=== PATIENT | male | born 1990 | race Caucasian/White ===

== ENCOUNTER 2021-07-13 23:15 | Observation (INO) | payer BC, SELFPAY ==
[2021-07-13 23:34] VITALS: BP 130/87; PULSE 72; RESP 15; TEMP 37.1; O2SAT 97
[2021-07-13 23:37] VITALS: BMI 25.1
[2021-07-14] MEDS: hyDROXYzine 25 mg Capsule 50 MG PO ×2 (00:21→07:58)
[2021-07-14] MEDS: trazodone 50 mg Tablet PO (00:21)
[2021-07-14 06:00] VITALS: BP 114/67; PULSE 58; RESP 15; TEMP 36.5; O2SAT 100
--- NOTE | 2021-07-14 09:39 | W.PM.NPUH&PS ---
Providers/Chief Complaint Admitting Physician: Demond Gaona MD Chief Complaint: etoh, si HPI NPU History of Present Illness Wander Dennison is a 30 year old male who was admitted as a transfer from [facility] with the following emergency department report: 30-year-old white male presents today with suicidal ideation patient apparently has had a complicated history with surgery. He has longstanding history of depression. States that he has been feeling intermittently suicidal for 15 years. Tonight after drinking he became concerned that he might act on that so he asked his to call and arrange for suicide watch. This prompted the to call 911. His blood alcohol level was 248. He admits to smoking 2 joints a day. He used methamphetamine in the past but stated that he quit in 2013. Urine drug screen was positive only for marijuana. EMS Affidavit: Mr. Wander Dennison was a patient requesting ambulance transport for suicidal thoughts. Patient states I need to be on suicide watch and I want to . Patient admits to drinking alcohol tonight. Patient was anxious and states several times I need suicide help and I want to . Affidavit from police: On Monday, July 12, 2021 at approximately 2052 hrs., Officer responded to [facility] for an emotionally disturbed person. Upon arrival we contacted a male subject identified as Wander Dennison who was compliant, and I had him speak with a sergeant. I went to the residents and spoke with subjects , Xochilt, she stated that he have been drinking and stated that he wanted to kill himself. Xochilt told me that Wander had numerous prior incidents of suicidal thoughts. Xochilt stated that Wander struggles with alcoholism and whenever he drinks he makes suicidal statements. But she does not always take them seriously. Tonight, Wander became angry and began breaking things in the residence, due to his behavior and statements she contacted emergency services. Following my conversation with Xochilt, I returned outside and spoke with Wander. I asked Wander what was going on, he state I went to seek sanctuary and ?I want to kill myself . I asked Wander if he could explain why he wanted to cause harm himself harm and he replied I would like to explain that to a professional. Based on Wander's comments and request for help, I contacted emergency ambulance sericves. While gathering further information, Wander began having seizures (convulses, foaming from the mouth and urinating himself). And who was also observed this stated that he has seizures every time he drinks alcohol. When Wander seizures appear to stop he stated I deserve this and told the EMS personnel I am said . Wander was assisted off the ground and escorted to the ambulance where he was turned over to EMS personnel for treatment. ? He was admitted to the neuropsychiatry unit for definitive treatment of these issues. He says that yesterday he did not start out well. He asked his how many pills they had not paid. She gave him a list of all the bills that they had paid and did not tell him any of the bills that they had not paid. They continue to argue all day long. He started drinking and way too far. He got more and more angry. He started destroying things in the house. He started taking things from the children. He knew it would continue to get worse and he says that he called the ambulance so that they would bring him to the hospital. Told them that he was suicidal so that they would bring him here. They have had many struggles during the pandemic. She is a nurse and when she has symptoms of the virus she has to not work for 20 days. He generally makes more money than she does because he has like 7 jobs at a time. Currently he has more work than he can handle. He says that everything they have bought is in her name. He says all of their deaths are in her name except for the on his Sebastián which is $20,000. He is planning on her when he goes home today. Everyone in his family is alcoholic or does drugs secretly. He and one relative that has seizures but they have been randomly and not based on drinking or getting overheated. He also frequently makes suicidal statements when he is intoxicated. He says that if someone disagrees with him and does not wake to hurt him he holds that grudge for many days and eventually explode with it. He says that his does that all the time. He knows that he needs therapy and would really benefit from talking with somebody who would not be judgmental like his is. PAST PSYCHIATRIC HISTORY As above SOCIAL HISTORY As above Meds NPU Home Medications Medication Instructions Recorded Confirmed Last Taken Type No Known Home Medications 07/14/21 07/14/21 Unknown History Allergies Allergy/AdvReac Type Severity Reaction Status Date / Time No Known Allergies Allergy Verified 07/14/21 00:02 Mental Status Exam MSE Comments: This is a mildly overweight male who appears his stated age and is in no acute distress. He is pleasant and cooperative with the examination. He is dressed in hospital scrub pants but no shirt. He has a full streeter. psychomotor activity is normal. Speech is at a regular rate and rhythm, normal volume, good articulation, not pressured. Alert, oriented X3 Attention and concentration appears to be normal. Memory is intact Mood is good. Affect is euthymic. Thought process is logical and goal-directed. Thought content: Denies auditory and visual hallucinations. No delusions or paranoia are noted. No current suicidal ideation, and no homicidal ideation. Fund of knowledge is normal. Insight and judgment appear to be fair. Impulse control is limited when he is intoxicated with alcohol but much better when he had sober.. Vitals/I&O/Wt Last Vital Signs Temp 97.7 F 07/14/21 06:00 Pulse 58 L 07/14/21 06:00 Resp 15 07/14/21 06:00 BP 114/67 07/14/21 06:00 Pulse Ox 100 07/14/21 06:00 Weight last 48 hrs Weight 81.647 kg A&P Assessment and plan (1) Alcohol abuse: Status: Acute (2) Marital conflict: Status: Acute Additional A&P Information [id number] male who was was very intoxicated and he told his , police EMS that he was going to kill himself Plan: 1. No medications started. he took as needed hydroxyzine and trazodone last night for sleep. He does not need it normally. 2. Continue every 15 minute checks for safety. 3. Encourage individual, group and milieu therapies. 4. Encourage sober living treatment after discharge at the highest level of care to which he is willing to commit. 5. We will monitor for safety for himself in the community prior to discharge. Involuntary Hold Information 96 Hour Hold: 96 Hour Involuntary Admission: Yes 96 Hour Hold Ending Date: 07/17/21 96 Hour Hold Ending Time: 23:25 Attestations NPU Medical Necessity Statement*: Inpatient hospitalization is medically necessary and the clinically appropriate intervention at this time. We will initiate medications and make changes as indicated. He will be in the hospital for over 2 midnights. Likely length of stay 2-3 days Coding Level of Care Code Acute Sap Data Architect for Hamida Saleh Diagnoses Alcohol abuse F10.10 Marital conflict Z63.0
--- NOTE | 2021-07-14 11:01 | W.PM.NPUDCS ---
Diagnoses at Discharge Discharge Diagnosis (1) Alcohol abuse: Status: Acute (2) Marital conflict: Status: Acute (3) Depression: Status: Acute Reason for Visit Reason for Visit: etoh, si Brief History: HPI NPU History of Present Illness Wander Dennison is a 30 year old male who was admitted as a transfer from [facility] with the following emergency department report: 30-year-old white male presents today with suicidal ideation patient apparently has had a complicated history with surgery. He has longstanding history of depression. States that he has been feeling intermittently suicidal for 15 years. Tonight after drinking he became concerned that he might act on that so he asked his to call and arrange for suicide watch. This prompted the to call 911. His blood alcohol level was 248. He admits to smoking 2 joints a day. He used methamphetamine in the past but stated that he quit in 2013. Urine drug screen was positive only for marijuana. EMS Affidavit: Mr. Wander Dennison was a patient requesting ambulance transport for suicidal thoughts. Patient states I need to be on suicide watch and I want to . Patient admits to drinking alcohol tonight. Patient was anxious and states several times I need suicide help and I want to . Affidavit from police: On Monday, July 12, 2021 at approximately 2052 hrs., Officer responded to [facility] for an emotionally disturbed person. Upon arrival we contacted a male subject identified as Wander Dennison who was compliant, and I had him speak with a sergeant. I went to the residents and spoke with subjects , Xochilt, she stated that he have been drinking and stated that he wanted to kill himself. Xochilt told me that Wander had numerous prior incidents of suicidal thoughts. Xochilt stated that Wander struggles with alcoholism and whenever he drinks he makes suicidal statements. But she does not always take them seriously. Tonight, Wander became angry and began breaking things in the residence, due to his behavior and statements she contacted emergency services. Following my conversation with Xochilt, I returned outside and spoke with Wander. I asked Wander what was going on, he state I went to seek sanctuary and ?I want to kill myself . I asked Wander if he could explain why he wanted to cause harm himself harm and he replied I would like to explain that to a professional. Based on Wander's comments and request for help, I contacted emergency ambulance serjustin. While gathering further information, Wander began having seizures (convulses, foaming from the mouth and urinating himself). And who was also observed this stated that he has seizures every time he drinks alcohol. When Wander seizures appear to stop he stated I deserve this and told the EMS personnel I am said . Wander was assisted off the ground and escorted to the ambulance where he was turned over to EMS personnel for treatment. ? He was admitted to the neuropsychiatry unit for definitive treatment of these issues. He says that yesterday he did not start out well. He asked his how many pills they had not paid. She gave him a list of all the bills that they had paid and did not tell him any of the bills that they had not paid. They continue to argue all day long. He started drinking and way too far. He got more and more angry. He started destroying things in the house. He started taking things from the children. He knew it would continue to get worse and he says that he called the ambulance so that they would bring him to the hospital. Told them that he was suicidal so that they would bring him here. They have had many struggles during the pandemic. She is a nurse and when she has symptoms of the virus she has to not work for 20 days. He generally makes more money than she does because he has like 7 jobs at a time. Currently he has more work than he can handle. He says that everything they have bought is in her name. He says all of their deaths are in her name except for the on his [place] which is $20,000. He is planning on her when he goes home today. Everyone in his family is alcoholic or does drugs secretly. He and one relative that has seizures but they have been randomly and not based on drinking or getting overheated. He also frequently makes suicidal statements when he is intoxicated. He says that if someone disagrees with him and does not wake to hurt him he holds that grudge for many days and eventually explode with it. He says that his does that all the time. He knows that he needs therapy and would really benefit from talking with somebody who would not be judgmental like his is. PAST PSYCHIATRIC HISTORY As above SOCIAL HISTORY As above Hospital Course Hospital Course He slowly acclimated to the individual, group and milieu therapies provided. He was given some as needed hydroxyzine and trazodone but no scheduled medications. He tolerated these doses and showed steady improvement during his stay. He was able to contract for safety outside hospital prior to discharge. During the hospitalization, patient had routine laboratory studies which were within normal limits except for few outliers. Additionally there was a general medical evaluation which was also within normal limits and revealed no new acute processes. Discharge Summary: At the time of discharge, lethality was denied. Mood and anxiety were well managed. Patient endorsed a plan to follow-up with the aftercare recommendations of the treatment team. Patient was evaluated and deemed to be absent credible lethality, and had achieved the maximum benefit from an inpatient hospitalization, so was discharged. Involuntary Hold Information 96 Hour Hold: 96 Hour Involuntary Admission: Yes 96 Hour Hold Ending Date: 07/17/21 96 Hour Hold Ending Time: 23:25 Mental Status Exam MSE Comments: This is a mildly overweight male who appears his stated age and is in no acute distress. He is pleasant and cooperative with the examination. He is dressed in hospital scrub pants but no shirt. He has a full streeter. psychomotor activity is normal. Speech is at a regular rate and rhythm, normal volume, good articulation, not pressured. Alert, oriented X3 Attention and concentration appears to be normal. Memory is intact Mood is good. Affect is euthymic. Thought process is logical and goal-directed. Thought content: Denies auditory and visual hallucinations. No delusions or paranoia are noted. No current suicidal ideation, and no homicidal ideation. Fund of knowledge is normal. Insight and judgment appear to be fair. Impulse control is limited when he is intoxicated with alcohol but much better when he had sober.. Cognition: Ability to Follow Directions: Good Comprehension Ability: No Impairment Hallucination Type: None Affect: Affect Description: Appropriate and Calm Behavior: Patient Behavior: Appropriate and Cooperative Speech Pattern: Appropriate and Clear Discharge Data Vitals: Last Vital Signs Temp 97.7 F 07/14/21 06:00 Pulse 58 L 07/14/21 06:00 Resp 15 07/14/21 06:00 BP 114/67 07/14/21 06:00 Pulse Ox 100 07/14/21 06:00 Discharge Plan Discharge Patient Disposition: Home Condition: Stable Prescriptions: No Action No Known Home Medications RF: 0 Discharge Orders: Discharge Order (Routine); Ordered 07/14/21 Ordered By: Demond Gaona Referrals: [facility] [Other] - 1-3 days (Walk in any time Tuesday-Tuesday from 8am-4pm to complete open access paperwork and assessment. ) Discharge Diet: Regular Discharge Activity: Resume usual activity Patient Instructions: Opioid Safety Discharge Attestations NPU Time Spent in Discharge Care*: less than 30 min Specific Discharge Activities: Specific discharge activities: educating patient, discussing with corrections caseworker/social workers/dc planners, documenting/other paperwork and evaluating patient/reviewing data Coding Level of Care Code Acute Chg DC note Diagnoses Alcohol abuse F10.10 Marital conflict Z63.0 Depression F32.A
[2021-07-14 11:08] VITALS: BP 114/67; PULSE 58; RESP 15; TEMP 36.5; O2SAT 100
== END 2021-07-14 12:08 | disposition home or self-care (01) ==
PROVIDERS: Admitting Provider Psychiatry & Neurology Psychiatry; Visit Provider Psychiatry & Neurology Psychiatry
DX: F10.10 Alcohol abuse, uncomplicated (principal); Z63.0 Problems in relationship with spouse or partner; F32.A Depression, unspecified; R45.851 Suicidal ideations; Z23 Encounter for immunization
CPT/HCPCS: 90471; 90686; 97165; G0378; G0379

== ENCOUNTER 2022-12-16 13:03 | Inpatient (IN) | payer SELFPAY ==
[2022-12-16 13:10] VITALS: BMI 29.2
[2022-12-16 14:00] VITALS: BP 128/83; PULSE 85; RESP 18; TEMP 36.6; O2SAT 96
[2022-12-16 14:55] VITALS: BP 128/83; PULSE 85; RESP 16; TEMP 36.6; O2SAT 96
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
[2022-12-16] MEDS: nicotine 2 mg Gum BUCCAL ×3 (16:11→20:07)
[2022-12-16] MEDS: divalproex ER 500 mg Tablet (24H) 1500 MG PO (21:11)
[2022-12-16] MEDS: trazodone 150 mg Tablet PO (21:11)
[2022-12-16] MEDS: efferdent effervescent 1 EACH DENTAL (21:33)
[2022-12-16 22:21] VITALS: BP 137/90; PULSE 85; RESP 18; TEMP 36.5; O2SAT 96
[2022-12-16 22:44] VITALS: BP 137/90; PULSE 85; RESP 18; TEMP 36.5; O2SAT 96
[2022-12-17 06:06] VITALS: BP 130/70; PULSE 86; RESP 17; TEMP 36.4; O2SAT 98
[2022-12-17] MEDS: fixodent 39 gm Tube 1 APPLIC DENTAL (06:45)
[2022-12-17] MEDS: nicotine 2 mg Gum BUCCAL ×4 (06:58→15:09)
[2022-12-17] MEDS: escitalopram 10 mg Tablet 15 MG PO (08:17)
[2022-12-17] MEDS: OLANZapine 5 mg ODT PO ×2 (13:34→20:59)
--- NOTE | 2022-12-17 13:40 | W.PM.NPUH&PS ---
Providers/Chief Complaint Admitting Physician: Domingo Vyas MD Chief Complaint: SI HPI NPU History of Present Illness Wander Dennison is a 32 year old male who presented to the outside hospital with significant depression and a plan to kill himself. Specifically with a gun. He was placed on a 96-hour hold and transferred to [facility] and admitted to the neuropsychiatric unit for definitive treatment of those issues. He presents today fairly animated and reporting that he is feeling anxious. Does well on his medication but that he had not really been taking it. Or that he had been less than consistent with it. He was struggling with boundaries and interactions with some other patients of similar agitation levels. We discussed the risk benefits and alternatives of getting his medications restarted specifically the Lexapro and Depakote and seeing how he does on those for a couple of days especially because it is unclear in his current state how accurate his report of adherence could be. We reviewed his last hospitalization here which was in 2020 and an excerpt of his discharge summary is included below for context and the fact that he is a very limited historian. He reports that he is and his is a support. He reports that he was behaving in ways that were making her uncomfortable and she reported that he needed to get help if they were going to be able to manage their relationship moving forward. Per his 07/14/2021 [facility] inpatient psychiatric discharge summary: Discharge Diagnosis (1) Alcohol abuse: Status: Acute (2) Marital conflict: Status: Acute (3) Depression: Status: Acute Reason for Visit Reason for Visit: etoh, si Brief History: HPI NPU History of Present Illness Wander Dennison is a 30 year old male who was admitted as a transfer from [facility] with the following emergency department report: 30-year-old white male presents today with suicidal ideation patient apparently has had a complicated history with surgery. He has longstanding history of depression. States that he has been feeling intermittently suicidal for 15 years. Tonight after drinking he became concerned that he might act on that so he asked his to call and arrange for suicide watch. This prompted the to call 911. His blood alcohol level was 248. He admits to smoking 2 joints a day. He used methamphetamine in the past but stated that he quit in 2013. Urine drug screen was positive only for marijuana. EMS Affidavit: Mr. Wander Dennison was a patient requesting ambulance transport for suicidal thoughts. Patient states I need to be on suicide watch and I want to . Patient admits to drinking alcohol tonight. Patient was anxious and states several times I need suicide help and I want to . Affidavit from police: On Monday, July 12, 2021 at approximately 2052 hrs., Officer responded to [facility] for an emotionally disturbed person. Upon arrival we contacted a male subject identified as Wander Dennison who was compliant, and I had him speak with a sergeant. I went to the residents and spoke with subjects , Xochilt, she stated that he have been drinking and stated that he wanted to kill himself. Xochilt told me that Wander had numerous prior incidents of suicidal thoughts. Xochilt stated that Wander struggles with alcoholism and whenever he drinks he makes suicidal statements. But she does not always take them seriously. Tonight, Wander became angry and began breaking things in the residence, due to his behavior and statements she contacted emergency services. Following my conversation with Xochilt, I returned outside and spoke with Wander. I asked Wander what was going on, he state I went to seek sanctuary and ?I want to kill myself . I asked Wander if he could explain why he wanted to cause harm himself harm and he replied I would like to explain that to a professional. Based on Wander's comments and request for help, I contacted emergency ambulance sericves. While gathering further information, Wander began having seizures (convulses, foaming from the mouth and urinating himself). And who was also observed this stated that he has seizures every time he drinks alcohol. When Wander seizures appear to stop he stated I deserve this and told the EMS personnel I am said . Wander was assisted off the ground and escorted to the ambulance where he was turned over to EMS personnel for treatment. ? He was admitted to the neuropsychiatry unit for definitive treatment of these issues. He says that yesterday he did not start out well. He asked his how many pills they had not paid. She gave him a list of all the bills that they had paid and did not tell him any of the bills that they had not paid. They continue to argue all day long. He started drinking and way too far. He got more and more angry. He started destroying things in the house. He started taking things from the children. He knew it would continue to get worse and he says that he called the ambulance so that they would bring him to the hospital. Told them that he was suicidal so that they would bring him here. They have had many struggles during the pandemic. She is a nurse and when she has symptoms of the virus she has to not work for 20 days. He generally makes more money than she does because he has like 7 jobs at a time. Currently he has more work than he can handle. He says that everything they have bought is in her name. He says all of their deaths are in her name except for the on his [place] which is $20,000. He is planning on her when he goes home today. Everyone in his family is alcoholic or does drugs secretly. He and one relative that has seizures but they have been randomly and not based on drinking or getting overheated. He also frequently makes suicidal statements when he is intoxicated. He says that if someone disagrees with him and does not wake to hurt him he holds that grudge for many days and eventually explode with it. He says that his does that all the time. He knows that he needs therapy and would really benefit from talking with somebody who would not be judgmental like his is. PAST PSYCHIATRIC HISTORY As above SOCIAL HISTORY As above Hospital Course He slowly acclimated to the individual, group and milieu therapies provided. He was given some as needed hydroxyzine and trazodone but no scheduled medications. He tolerated these doses and showed steady improvement during his stay. He was able to contract for safety outside hospital prior to discharge. During the hospitalization, patient had routine laboratory studies which were within normal limits except for few outliers. Additionally there was a general medical evaluation which was also within normal limits and revealed no new acute processes. Discharge Summary: At the time of discharge, lethality was denied. Mood and anxiety were well managed. Patient endorsed a plan to follow-up with the aftercare recommendations of the treatment team. Patient was evaluated and deemed to be absent credible lethality, and had achieved the maximum benefit from an inpatient hospitalization, so was discharged. Meds NPU Home Medications Medication Instructions Recorded Confirmed Last Taken Type divalproex 1,500 mg PO BEDTIME 12/16/22 12/16/22 Unknown History escitalopram oxalate 10 mg PO DAILY 12/16/22 12/16/22 Unknown History trazodone 150 mg PO BEDTIME SLEEP 12/16/22 12/16/22 Unknown History Allergies Allergy/AdvReac Type Severity Reaction Status Date / Time No Known Allergies Allergy Verified 07/14/21 00:02 Mental Status Exam MSE Comments: This is an overweight versus obese white male in hospital scrubs with limited grooming and adequate eye contact. Extremely long streeter with beads and latisha. No abnormal movements except for mild psychomotor agitation. Mostly cooperative with exam in mild to moderate distress. Speech was increased rate and volume. Mood described as feeling better, affect slightly elevated. Thought process mostly organized. Thought content: Patient reported fleeting suicidal but denied homicidal ideations, there were no delusions reported but some paranoia and grandiosity noted, he did not report auditory or visual hallucinations. Attention and concentration were limited and memory was somewhat reliable but limited but none were formally tested. He is alert and oriented x3. Insight, judgment and impulse control are impaired. Cognition: Ability to Follow Directions: Good Comprehension Ability: No Impairment Hallucination Type: None Affect: Affect Description: Appropriate and Calm Behavior: Patient Behavior: Appropriate and Cooperative Speech Pattern: Appropriate and Clear Vitals/I&O/Wt Last Vital Signs Temp 97.5 F L 12/17/22 06:06 Pulse 86 12/17/22 06:06 Resp 17 12/17/22 06:06 BP 130/70 12/17/22 06:06 Pulse Ox 98 12/17/22 06:06 O2 Del Method Room Air 12/17/22 06:06 Weight last 48 hrs Weight 95.254 kg A&P Assessment and plan (1) Depression: (2) Marital conflict: (3) Alcohol abuse: Plan This is a 32-year-old white male with a history of addiction and marital problems as well as significant mood dysregulation who presented on a 96-hour hold much like his last admission back in 2020. Plan: 1.? Continue current medications. 2.? Continue every 15 minute checks for safety. 3.? Encourage individual, group and milieu therapies. 4.? Encourage sober living treatment after discharge at the highest level of care to which he is willing to commit. 5.? We will monitor for safety for himself in the community prior to discharge. Involuntary Hold Information 96 Hour Hold: 96 Hour Involuntary Admission: Yes 96 Hour Hold Ending Date: 12/22/22 96 Hour Hold Ending Time: 13:00 Attestations NPU Medical Necessity Statement*: Inpatient hospitalization is medically necessary and the clinically appropriate intervention at this time. We will initiate medications and make changes as indicated. He will be in the hospital for over 2 midnights. Likely length of stay 4-6 days. Coding Level of Care Code Acute Code for g Fwd Diagnoses Depression F32.A Marital conflict Z63.0 Alcohol abuse F10.10
[2022-12-17 14:00] VITALS: BP 132/83; PULSE 94; RESP 20; TEMP 36.3; O2SAT 97
[2022-12-17 20:16] VITALS: RESP 12
[2022-12-17] MEDS: divalproex ER 500 mg Tablet (24H) 1500 MG PO (21:00)
[2022-12-17] MEDS: trazodone 150 mg Tablet PO (21:00)
[2022-12-17] MEDS: efferdent effervescent 1 EACH DENTAL (21:00)
[2022-12-18 06:32] VITALS: RESP 12
--- NOTE | 2022-12-18 06:32 | P.NPUPN_ITS ---
Subjective NPU Subjective: Patient presented today reporting that he is feeling better and would like to home. Staff reached out to his who expressed significant signs about his recent behaviors, including threats to commit suicide, degrading verbal abuse by , significant mood swings and increased alcohol consumption. He is on a 96- hour hold and we discussed using this opportunity to make sure he has resources and plan on how he is going to avoid a repeat after discharge. Mental Status Exam MSE Comments: This is an overweight versus obese white male in hospital scrubs with limited grooming and adequate eye contact. Extremely long streeter with beads and latisha. No abnormal movements except for mild psychomotor agitation. Mostly cooperative with exam in mild to moderate distress. Speech was increased rate and volume. Mood described as feeling better, affect slightly elevated. Thought process mostly organized. Thought content: Patient reported fleeting suicidal but denied homicidal ideations, there were no delusions reported but some paranoia and grandiosity noted, he did not report auditory or visual hallucinations. Attention and concentration were limited and memory was somewhat reliable but limited but none were formally tested. He is alert and oriented x3. Insight, judgment and impulse control are impaired. Cognition: Ability to Follow Directions: Good Comprehension Ability: No Impairment Hallucination Type: None Affect: Affect Description: Appropriate and Calm Behavior: Patient Behavior: Appropriate and Cooperative Speech Pattern: Appropriate and Clear Vitals/I&O/Wt Last Vital Signs Temp 97.4 F L 12/17/22 14:00 Pulse 94 12/17/22 14:00 Resp 12 12/17/22 20:16 BP 132/83 12/17/22 14:00 Pulse Ox 97 12/17/22 14:00 O2 Del Method Room Air 12/17/22 06:06 Weight last 48 hrs Weight 95.254 kg A&P Assessment and plan (1) Depression: (2) Marital conflict: (3) Alcohol abuse: Plan This is a 32-year-old white male with a history of addiction and marital pr oblems as well as significant mood dysregulation who presented on a 96-hour hold much like his last admission back in 2020. Plan: 1.? Continue current medications. 2.? Continue every 15 minute checks for safety. 3.? Encourage individual, group and milieu therapies. 4.? Encourage sober living treatment after discharge at the highest level of care to which he is willing to commit. 5.? We will monitor for safety for himself in the community prior to discharge. Involuntary Hold Information 96 Hour Hold: 96 Hour Involuntary Admission: Yes 96 Hour Hold Ending Date: 12/22/22 96 Hour Hold Ending Time: 13:00 Attestations NPU Medical Necessity Statement*: Inpatient hospitalization is medically necessary and the clinically appropriate intervention at this time. We will initiate medications and make changes as indicated. Likely length of stay 4-6 days. Coding Level of Care Code Acute Code for [facility] Fwd Diagnoses Depression F32.A Marital conflict Z63.0 Alcohol abuse F10.10
[2022-12-18] MEDS: escitalopram 10 mg Tablet 15 MG PO (08:53)
[2022-12-18] MEDS: OLANZapine 5 mg ODT PO ×2 (09:28→20:31)
[2022-12-18 14:00] VITALS: BP 120/83; PULSE 113; RESP 18; O2SAT 96
[2022-12-18] MEDS: hyDROXYzine 25 mg Capsule 50 MG PO (16:02)
[2022-12-18] MEDS: trazodone 150 mg Tablet PO (20:31)
[2022-12-18] MEDS: divalproex ER 500 mg Tablet (24H) 1500 MG PO (20:31)
[2022-12-18] MEDS: efferdent effervescent 1 EACH DENTAL (20:33)
[2022-12-18 20:49] VITALS: BP 129/86; PULSE 97; RESP 18; TEMP 36.4; O2SAT 95
[2022-12-19 06:00] VITALS: BP 120/56; PULSE 67; RESP 18; TEMP 36.7; O2SAT 100
[2022-12-19] MEDS: escitalopram 10 mg Tablet 15 MG PO (08:37)
[2022-12-19] MEDS: ibuprofen 600 mg Tablet PO (13:14)
[2022-12-19 13:49] VITALS: BP 129/82; PULSE 87; RESP 18; TEMP 36.9; O2SAT 95
--- NOTE | 2022-12-19 14:22 | W.PM.NPUPNS ---
Subjective NPU Subjective: Patient is a 32-year-old white male admitted with suicidal ideation with a plan to shoot himself with a gun. He reports a past history of polysubstance abuse but reports no methamphetamine recently. He has reported that he had been feeling more anxious and had resumed drinking after months of sobriety. He states that he is interested in receiving help to manage his alcohol use. He had reported being started on Campral recently. He denied any history of ivan but stated that he had problems with mood swings and states that his outpatient psychiatrist had been prescribing him Depakote for irritability. He does reported history of depression and anxiety that he states had been better with the increase in Lexapro. He reports that he is motivated to return home and stated that he needed to get counseling. He had reported that he was working several jobs and often struggled with financial concerns. Mental Status Exam MSE Comments: This is a healthy white male in hospital scrubs with adequate grooming and adequate eye contact. Extremely long streeter with beads and latisha. There was no evidence of any abnormal involuntary motor movements tics or tremors appreciated. He was cooperative with exam in mild distress. Speech was normal in rate rhythm and prosody. Mood described as feeling better. His affect was slightly euphoric. His thought process was linear and logical.. Thought content: Patient denied suicidal and homicidal ideation. There were no delusions reported. He did not report auditory or visual hallucinations. Attention and concentration appeared intact. He is alert and oriented x3. Insight was improving., His judgment was improving. His impulse control appeared impaired. Cognition: Ability to Follow Directions: Good Comprehension Ability: No Impairment Hallucination Type: None Affect: Affect Description: Appropriate and Calm Behavior: Patient Behavior: Appropriate and Cooperative Speech Pattern: Appropriate and Clear Vitals/I&O/Wt Last Vital Signs Temp 98.4 F 12/19/22 13:49 Pulse 87 12/19/22 13:49 Resp 18 12/19/22 13:49 BP 129/82 12/19/22 13:49 Pulse Ox 95 12/19/22 13:49 O2 Del Method Room Air 12/19/22 06:00 Weight last 48 hrs Weight 97.341 kg A&P Assessment and plan (1) Depression: (2) Marital conflict: (3) Alcohol abuse: Plan This is a 32-year-old white male with a history of addiction and marital problems as well as significant mood dysregulation who presented on a 96-hour hold much like his last admission back in 2020. Plan: 1.? Continue trazodone and Depakote as prescribed with increase in Lexapro to 20 mg daily. 2.? Continue every 15 minute checks for safety. 3.? Encourage individual, group and milieu therapies. 4.? Encourage sober living treatment after discharge at the highest level of care to which he is willing to commit. 5.? We will monitor for safety for himself in the community prior to discharge. Involuntary Hold Information 96 Hour Hold: 96 Hour Involuntary Admission: Yes 96 Hour Hold Ending Date: 12/22/22 96 Hour Hold Ending Time: 13:00 Attestations NPU Medical Necessity Statement*: Inpatient hospitalization is medically necessary and the clinically appropriate intervention at this time. We will initiate medications and make changes as indicated. Likely length of stay 2-3 days. Coding Level of Care Code Acute Code for [facility] Fwd Diagnoses Depression F32.A Marital conflict Z63.0 Alcohol abuse F10.10
--- NOTE | 2022-12-19 15:52 | NPU.GN ---
[facility] Group Topic:domo kruger General Mood of Group: patient attended group, enjoying activity with others
[2022-12-19] MEDS: OLANZapine 5 mg ODT PO (18:16)
[2022-12-19] MEDS: trazodone 150 mg Tablet PO (20:13)
[2022-12-19] MEDS: divalproex ER 500 mg Tablet (24H) 1500 MG PO (20:13)
[2022-12-19] MEDS: efferdent effervescent 1 EACH DENTAL (20:26)
[2022-12-19 22:00] VITALS: BP 131/76; PULSE 89; RESP 18; TEMP 36.7; O2SAT 97
[2022-12-20] MEDS: cetylpyridinium Lozenge 1 EACH MUCOUS MEM (05:14)
[2022-12-20] MEDS: fixodent 39 gm Tube 1 APPLIC DENTAL (05:28)
[2022-12-20 06:00] VITALS: BP 122/85; PULSE 84; RESP 18; TEMP 36.6; O2SAT 97
[2022-12-20] MEDS: escitalopram 10 mg Tablet 20 MG PO (08:07)
[2022-12-20] MEDS: ibuprofen 600 mg Tablet PO (08:08)
[2022-12-20] MEDS: OLANZapine 5 mg ODT PO (11:48)
[2022-12-20 14:00] VITALS: BP 132/79; PULSE 81; RESP 16; TEMP 36.6; O2SAT 96
[2022-12-20 17:09] VITALS: BP 132/79; PULSE 81; RESP 16; TEMP 36.6; O2SAT 96
--- NOTE | 2022-12-20 19:48 | W.PM.NPUDCS ---
Diagnoses at Discharge Discharge Diagnosis (1) Depression: Status: Resolved (2) Marital conflict: Status: Acute (3) Alcohol abuse: Status: Acute Reason for Visit Reason for Visit: SI Brief History: History of Present Illness Wander Dennison is a 32 year old male who presented to the outside hospital with significant depression and a plan to kill himself.? Specifically with a gun.? He was placed on a 96-hour hold and transferred to [facility] and admitted to the neuropsychiatric unit for definitive treatment of those issues.? He presents today fairly animated and reporting that he is feeling anxious.? Does well on his medication but that he had not really been taking it.? Or that he had been less than consistent with it.? He was struggling with boundaries and interactions with some other patients of similar agitation levels.? We discussed the risk benefits and alternatives of getting his medications restarted specifically the Lexapro and Depakote and seeing how he does on those for a couple of days especially because it is unclear in his current state how accurate his report of adherence could be.? We reviewed his last hospitalization here which was in 2020 and an excerpt of his discharge summary is included below for context and the fact that he is a very limited historian.? He reports that he is and his is a support.? He reports that he was behaving in ways that were making her uncomfortable and she reported that he needed to get help if they were going to be able to manage their relationship moving forward. Per his 07/14/2021 [facility] inpatient psychiatric discharge summary: Discharge Diagnosis (1) Alcohol abuse: ? ? ? Status: Acute (2) Marital conflict: ? ? ? Status: Acute (3) Depression: ? ? ? Status: Acute Reason for Visit Reason for Visit:?? etoh, si? Brief History: [facility] History of Present Illness Wander Dennison is a 30 year old male who was admitted as a transfer from [facility] with the following emergency department report: 30-year-old white male presents today with suicidal ideation patient apparently has had a complicated history with surgery.? He has longstanding history of depression.? States that he has been feeling intermittently suicidal for 15 years.? Tonight after drinking he became concerned that he might act on that so he asked his to call and arrange for suicide watch.? This prompted the to call 911. His blood alcohol level was 248. He admits to smoking 2 joints a day.? He used methamphetamine in the past but stated that he quit in 2013. Urine drug screen was positive only for marijuana. EMS Affidavit: Mr. Wander Dennison was a patient requesting ambulance transport for suicidal thoughts.? Patient states I need to be on suicide watch and I want to .? Patient admits to drinking alcohol tonight.? Patient was anxious and states several times I need suicide help and I want to . Affidavit from police: On Monday, July 12, 2021 at approximately 2052 hrs., Officer responded to [facility] for an emotionally disturbed person. Upon arrival we contacted a male subject identified as Wander Dennison who was compliant, and I had him speak with a sergeant. I went to the residents and spoke with subjects , Xochilt, she stated that he have been drinking and stated that he wanted to kill himself.? Xochilt told me that Wander had numerous prior incidents of suicidal thoughts.? Xochilt stated that Wander struggles with alcoholism and whenever he drinks he makes suicidal statements.? But she does not always take them seriously.? Tonight, Wander became angry and began breaking things in the residence, due to his behavior and statements she contacted emergency services. Following my conversation with Xochilt, I returned outside and spoke with Wander.? I asked Wander what was going on, he state I went to seek sanctuary and ?I want to kill myself .? I asked Wander if he could explain why he wanted to cause harm himself harm and he replied I would like to explain that to a professional. ? Based on Wander's comments and request for help, I contacted emergency ambulance sericves.? While gathering further information, Wander began having seizures (convulses, foaming from the mouth and urinating himself).? And who was also observed this stated that he has seizures every time he drinks alcohol.? When Wander seizures appear to stop he stated I deserve this and told the EMS personnel I am said .? Wander was assisted off the ground and escorted to the ambulance where he was turned over to EMS personnel for treatment. ? He was admitted to the neuropsychiatry unit for definitive treatment of these issues.? He says that yesterday he did not start out well.? He asked his how many pills they had not paid.? She gave him a list of all the bills that they had paid and did not tell him any of the bills that they had not paid.? They continue to argue all day long.? He started drinking and way too far.? He got more and more angry.? He started destroying things in the house.? He started taking things from the children.? He knew it would continue to get worse and he says that he called the ambulance so that they would bring him to the hospital.? Told them that he was suicidal so that they would bring him here.? They have had many struggles during the pandemic.? She is a nurse and when she has symptoms of the virus she has to not work for 20 days.? He generally makes more money than she does because he has like 7 jobs at a time.? Currently he has more work than he can handle.? He says that everything they have bought is in her name.? He says all of their deaths are in her name except for the on his [place] which is $20,000.? He is planning on her when he goes home today.? Everyone in his family is alcoholic or does drugs secretly.? He and one relative that has seizures but they have been randomly and not based on drinking or getting overheated.? He also frequently makes suicidal statements when he is intoxicated.? He says that if someone disagrees with him and does not wake to hurt him he holds that grudge for many days and eventually explode with it.? He says that his does that all the time.? He knows that he needs therapy and would really benefit from talking with somebody who would not be judgmental like his is. PAST PSYCHIATRIC HISTORY As above SOCIAL HISTORY As above Hospital Course He slowly acclimated to the individual, group and milieu therapies provided.? He was given some as needed hydroxyzine and trazodone but no scheduled medications.? He tolerated these doses and showed steady improvement during his stay. ? He was able to contract for safety outside hospital prior to discharge.? During the hospitalization, patient had routine laboratory studies which were within normal limits except for few outliers.? Additionally there was a general medical evaluation which was also within normal limits and revealed no new acute processes. Discharge Summary: At the time of discharge, lethality was denied.? Mood and anxiety were well managed.? Patient endorsed a plan to follow-up with the aftercare recommendations of the treatment team.? Patient was evaluated and deemed to be absent credible lethality, and had achieved the maximum benefit from an inpatient hospitalization, so was discharged. Hospital Course Hospital Course During the hospitalization, patient had routine laboratory studies which were within normal limits except for few outliers.? Additionally there was a general medical evaluation which was also within normal limits and revealed no new acute processes. At the time of discharge, lethality and psychosis was denied. ? Mood and anxiety were well managed.? Patient endorsed a plan to avoid all drugs of abuse and follow-up with the aftercare recommendations of the treatment team.? Patient was evaluated and deemed to be absent credible lethality, and had achieved the maximum benefit from an inpatient hospitalization, so was discharged. Involuntary Hold Information 96 Hour Hold: 96 Hour Involuntary Admission: Yes 96 Hour Hold Ending Date: 12/22/22 96 Hour Hold Ending Time: 13:00 Mental Status Exam MSE Comments: This is a healthy white male in hospital scrubs with adequate grooming and adequate eye contact. Extremely long streeter with beads and latisha. There was no evidence of any abnormal involuntary motor movements tics or tremors appreciated. He was cooperative with exam in no acute distress on discharge. Speech was normal in rate rhythm and prosody. Mood described as feeling better. His affect was euthymic. His thought process was linear and logical.. Thought content: Patient denied suicidal and homicidal ideation. There were no delusions reported. He did not report auditory or visual hallucinations. Attention and concentration appeared intact. He is alert and oriented x3. Insight was improving., His judgment was improving. His impulse control appeared adequate at discharge. Cognition: Ability to Follow Directions: Good Comprehension Ability: No Impairment Hallucination Type: None Affect: Affect Description: Appropriate and Calm Behavior: Patient Behavior: Appropriate and Cooperative Speech Pattern: Appropriate and Clear Discharge Data Vitals: Last Vital Signs Temp 97.9 F 12/20/22 17:09 Pulse 81 12/20/22 17:09 Resp 16 12/20/22 17:09 BP 132/79 12/20/22 17:09 Pulse Ox 96 12/20/22 17:09 O2 Del Method Room Air 12/19/22 22:00 Discharge Plan Discharge Patient Disposition: Home Condition: Stable Prescriptions: New escitalopram oxalate 10 mg Tablet 20 mg PO DAILY 30 Days Qty: 60 1RF acamprosate 333 mg tablet,delayed release (DR/EC) 666 mg PO TID Qty: 360 1RF Rx Instructions: administer with mid-day and evening meals Continued trazodone 150 mg PO BEDTIME divalproex 1,500 mg PO BEDTIME Discontinued escitalopram oxalate 10 mg PO DAILY Rx Instructions: take one and one-half tablets by mouth every morning Discharge Orders: Discharge Order (Routine); Ordered 12/20/22 Ordered By: George Mcmanus Referrals: Dr MELCHOR [facility] [Other] - 1-3 days Discharge Diet: Advance as tolerated Discharge Activity: Resume usual activity Patient Instructions: Alcohol Abuse, Alcohol Withdrawal, Depression, Help Prevent Suicide (GEN), Opioid Safety Discharge Attestations NPU Time Spent in Discharge Care*: less than 30 min Specific Discharge Activities: Specific discharge activities: educating patient and documenting/other paperwork Coding Level of Care Code Acute g DC note Diagnoses Depression F32.A Marital conflict Z63.0 Alcohol abuse F10.10
== END 2022-12-20 17:21 | disposition home or self-care (01) | DRG 885 ==
PROVIDERS: Admitting Provider Psychiatry & Neurology Psychiatry; Visit Provider Psychiatry & Neurology Psychiatry
DX: F34.81 Disruptive mood dysregulation disorder (principal); R45.851 Suicidal ideations; F32.A Depression, unspecified; F10.10 Alcohol abuse, uncomplicated; Z63.0 Problems in relationship with spouse or partner
CPT/HCPCS: 97150; 97165; 99238

== ENCOUNTER 2023-04-16 02:29 | Inpatient (IN) | payer SELFPAY ==
[2023-04-16 02:39] VITALS: BP 149/99; PULSE 76; RESP 20; TEMP 36.9; O2SAT 97
[2023-04-16 02:42] VITALS: BMI 29.5
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
[2023-04-16] MEDS: LORazepam 2 mg Tablet PO ×3 (03:22→17:48)
[2023-04-16] MEDS: ondansetron 4 MG Tablet PO ×2 (03:23→18:00)
--- NOTE | 2023-04-16 03:24 | PC.NURSE ---
SCORED 22 ON [facility] PROTOCOL. PT WAS GIVEN ATIVAN 2 MG PO FOR ALCOHOL WITHDRAWAL AND ZOFRAN 4 MG PO FOR NAUSEA.
--- NOTE | 2023-04-16 03:31 | PC.NURSE ---
CHART REVIEWED BY RN, PT WAS HERE 01/24/23, NOT YEAR AGO. WILL NOTIFY DR. LEOS IN AM TO SEE IF HE WANTS THE SAME MEDICATIONS RESTARTED THAT HE PUT PT ON LAST TIME IN JANUARY OF THIS YEAR.
--- NOTE | 2023-04-16 06:45 | PC.NURSE ---
pt refused resp 18
--- NOTE | 2023-04-16 07:13 | PC.NURSE ---
PT HAS SLEPT SINCE HIS ATIVAN 2 MG PO FOR ALCOHOL WITHDRAWAL. PT GOT UP AT 710 AND WAS UP AND DRINKING COFFEE. ATIVAN DEEMED EFFECTIVE.
[2023-04-16] MEDS: multivitamin therapeutic Tablet 1 TAB PO (08:17)
[2023-04-16] MEDS: thiamine 100 mg Tablet PO (08:17)
[2023-04-16] MEDS: folic acid 1 mg Tablet PO (08:17)
[2023-04-16] MEDS: nicotine 2 mg Gum BUCCAL ×3 (13:04→20:20)
[2023-04-16 13:21] VITALS: BP 145/95; PULSE 82; RESP 14; TEMP 37.1; O2SAT 98
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
[2023-04-16 20:03] VITALS: BP 140/82; PULSE 94; RESP 16; TEMP 37; O2SAT 97
[2023-04-16] MEDS: promethazine 25 mg Tablet PO (20:22)
[2023-04-16] MEDS: hyDROXYzine 25 mg Capsule 50 MG PO (20:22)
[2023-04-16] MEDS: trazodone 150 mg Tablet PO (20:22)
--- NOTE | 2023-04-16 20:54 | PC.NURSE ---
PT ANXIOUS, SWEATING AND CAN NOT SIT STILL. PT RECEIVED A DOSE OF ATIVAN PRIOR TO SHIFT CHANGE. CONTINUES TO STATE I CAN NOT HOLD ANYTHING DOWN I THREW UP LITERALLY 10 TIMES TODAY. PT REPORTS ZOFRAN HAS NOT WORKED MUCH AT ALL. PT ALSO REQUESTED HIS TRAZODONE BE INCREASED TO 150 MG EACH NIGHT. ASSURED PT THIS RN WOULD CALL DR. GAFFNEY. PT DENIES SI/HI AND AVH AT THIS TIME. DENIES PAIN, BUT DOES STATE I FEEL LIKE I'M GOING TO CRAWL OUT OF MY SKIN OR RIP IT OFF. EDUCATED PT ON MEDICATION OPTIONS SINCE IT WAS TOO SOON FOR ATIVAN. PT STATES I WILL TRY THE VISTARIL WITH MY TRAZODONE AND SEE IF THAT WORKS. NEW ORDERS WERE RECEIVED FROM DR. TINSLEY AT 2007 FOR PHENERGAN 25 MG PO Q 6 HOURS PRN NAUSEA AND TRAZODONE 150 MG PO Q HS. PT IS PLEASED THE ORDERS WERE RECEIVED. PT REQUESTED HE TAKE THE PHENERGAN 25 MG FIRST AND WAIT A FEW MINUTES BEFORE TAKING THE REST OF IT. PT WAS GIVEN SALTINE CRACKERS AND SMALL SIP OF WATER WITH THE PHENERGAN. PT RETURNED 15-20 MINUTES LATER AND TOOK THE TRAZODONE 150 MG FOR SLEEP AND THE VISTARIL 50 MG FOR ANXIETY ORDERED. PT THEN WENT TO ROOM TO REST. ALL QUESTIONS WERE ANSWERED AND SUPPORT WAS VOICED.
[2023-04-17 06:00] VITALS: BP 124/88; PULSE 94; RESP 16; TEMP 36.9; O2SAT 95; BMI 28.3
[2023-04-17] MEDS: fixodent 39 gm Tube 1 APPLIC DENTAL (06:15)
--- NOTE | 2023-04-17 06:34 | PC.NURSE ---
TRAZODONE AND VISTARIL THAT WAS GIVEN LAST NIGHT IS DEEMED EFFECTIVE. PT SLEPT THROUGH OUT THE NIGHT UNTIL 600 AM.
[2023-04-17] MEDS: nicotine 2 mg Gum BUCCAL ×6 (06:47→20:11)
[2023-04-17] MEDS: folic acid 1 mg Tablet PO (08:13)
[2023-04-17] MEDS: multivitamin therapeutic Tablet 1 TAB PO (08:13)
[2023-04-17] MEDS: thiamine 100 mg Tablet PO (08:13)
[2023-04-17] MEDS: ondansetron 4 MG Tablet PO (08:31)
[2023-04-17] MEDS: hyDROXYzine 25 mg Capsule 50 MG PO ×2 (09:48→15:50)
[2023-04-17] MEDS: haloperidol 5 mg Tablet PO (10:44)
[2023-04-17] MEDS: divalproex ER 500 mg Tablet (24H) 1500 MG PO (11:22)
[2023-04-17] MEDS: fluoxetine 20 mg Capsule PO (11:22)
[2023-04-17 14:00] VITALS: BP 156/85; PULSE 85; RESP 22; TEMP 36.8; O2SAT 95
[2023-04-17] MEDS: OLANZapine 5 mg ODT PO (14:32)
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
[2023-04-17] MEDS: neomycin-poly-bacitracin oint 28 gm 1 APPLIC TOPICAL (18:35)
[2023-04-17 19:42] VITALS: BP 127/86; PULSE 86; RESP 15; TEMP 36.6; O2SAT 95
[2023-04-17] MEDS: trazodone 150 mg Tablet PO (20:11)
[2023-04-17] MEDS: promethazine 25 mg Tablet PO (20:11)
[2023-04-17] MEDS: quetiapine 100 mg Tablet PO (20:11)
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
[2023-04-18 06:00] VITALS: BP 126/82; PULSE 92; RESP 16; TEMP 36.6; O2SAT 96
[2023-04-18] MEDS: nicotine 2 mg Gum BUCCAL ×5 (06:20→18:30)
[2023-04-18] MEDS: fixodent 39 gm Tube 1 APPLIC DENTAL (06:20)
[2023-04-18] MEDS: thiamine 100 mg Tablet PO (08:19)
[2023-04-18] MEDS: multivitamin therapeutic Tablet 1 TAB PO (08:19)
[2023-04-18] MEDS: folic acid 1 mg Tablet PO (08:19)
[2023-04-18] MEDS: fluoxetine 20 mg Capsule PO (08:19)
[2023-04-18] MEDS: naltrexone hcl 50 mg Tablet PO (08:19)
[2023-04-18] MEDS: divalproex ER 500 mg Tablet (24H) 1500 MG PO (08:19)
[2023-04-18] MEDS: hyDROXYzine 25 mg Capsule 50 MG PO ×2 (10:13→18:46)
[2023-04-18] MEDS: OLANZapine 5 mg ODT PO (12:42)
[2023-04-18 13:35] VITALS: BP 128/83; PULSE 84; RESP 18; TEMP 36.6; O2SAT 97
--- NOTE | 2023-04-18 18:32 | W.PM.NPUPNS ---
Subjective NPU Subjective: Patient is a 32-year-old white male admitted with suicidal ideation with a significant history of alcohol abuse. The patient reported that he did wish to consider an outpatient or inpatient treatment program. He had stated that somewhere which may be an option for him although it appeared that there did not appear to be of that immediately available there. He had reported no side effects from his medication. He had continue to report depression. He had reported no feelings of hopelessness. He had reported feeling optimistic about working out his difficulties with his . He had stated that he had desire to go back to work. He had reported no side effects currently from the naltrexone Mental Status Exam MSE Comments: Casually dressed white male who appeared his stated age. He appeared somewhat hyperactive and had difficulties sitting still as he appeared to be pacing his room. His gait appeared adequate. His hygiene was fair. There was no evidence of any abnormal involuntary motor movements tics or tremors appreciated. His mood was described as okay. His affect appeared labile. His thought process was linear logical and goal-directed. His thought content showed no evidence of active homicidal or suicidal ideation. He did not appear to be responding internal stimuli. There was no clear evidence of delusional thinking. His recent and remote memory appeared grossly intact. His insight and judgment appeared limited. His impulse control appeared poor. Vitals/I&O/Wt Last Vital Signs Temp 97.9 F 04/18/23 13:35 Pulse 84 04/18/23 13:35 Resp 18 04/18/23 13:35 BP 128/83 04/18/23 13:35 Pulse Ox 97 04/18/23 13:35 O2 Del Method Room Air 04/18/23 06:00 Weight last 48 hrs Weight 92.079 kg Weight 92.079 kg A&P Assessment and plan (1) Major depressive disorder, recurrent: (2) Alcohol dependence: (3) PTSD (post-traumatic stress disorder): Plan This is a 32-year-old male with multiple previous psychiatric admissions over the last year admitted with suicidal ideation with active depression and alcohol dependence. 1. ?Encourage individual, group and milieu therapy. 2. Recommend sober living treatment at the highest level of care to which the patient is willing to commit. 3. Continue q-15 minute checks for safety.? 4. Increase Prozac to 30 mg daily and increase Seroquel to 150 mg at night continue depakote as prescribed and will discontinue campral and initiate trial of naltrexone. 5. [facility] protocol for alcohol withdrawal. Involuntary Hold Information 96 Hour Hold: 96 Hour Involuntary Admission: Yes 96 Hour Hold Ending Date: 04/22/23 96 Hour Hold Ending Time: 00:01 Attestations NPU Medical Necessity Statement*: Inpatient hospitalization is medically necessary and the clinically appropriate intervention at this time. We will initiate medications and make changes as indicated. His likely length of stay is 3-5 days. Coding Level of Care Code Acute Code for g Fwd Diagnoses Major depressive disorder, recurrent F33.9 Alcohol dependence F10.20 PTSD (post-traumatic stress disorder) F43.10
--- NOTE | 2023-04-18 19:49 | PC.NURSE ---
ASSESSMENT COMPLETED. PT DENIES PAIN. DENIES SI/HI AND AVH AT THIS TIME. PT IS RESTING IN BED BUT AROUSES TO VOICE.
[2023-04-18 20:35] VITALS: BP 130/76; PULSE 60; RESP 16; TEMP 36.7; O2SAT 95
[2023-04-18] MEDS: quetiapine 100 mg Tablet 150 MG PO (20:54)
[2023-04-19] MEDS: nicotine 2 mg Gum BUCCAL ×5 (02:37→18:11)
[2023-04-19 06:00] VITALS: BP 138/86; PULSE 89; RESP 15; TEMP 36.4; O2SAT 98
[2023-04-19] MEDS: thiamine 100 mg Tablet PO (08:11)
[2023-04-19] MEDS: folic acid 1 mg Tablet PO (08:11)
[2023-04-19] MEDS: naltrexone hcl 50 mg Tablet PO (08:11)
[2023-04-19] MEDS: multivitamin therapeutic Tablet 1 TAB PO (08:11)
[2023-04-19] MEDS: divalproex ER 500 mg Tablet (24H) 1500 MG PO (08:11)
[2023-04-19] MEDS: fluoxetine 10 mg Capsule 30 MG PO (08:11)
[2023-04-19 14:00] VITALS: BP 143/84; PULSE 76; RESP 16; TEMP 36.4; O2SAT 98
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
[2023-04-19 19:49] VITALS: BP 153/94; PULSE 72; RESP 16; TEMP 36.6; O2SAT 93
[2023-04-19] MEDS: trazodone 100 mg Tablet PO (20:28)
[2023-04-19] MEDS: quetiapine 100 mg Tablet 200 MG PO (20:29)
[2023-04-19] MEDS: efferdent effervescent 1 EACH DENTAL (20:29)
[2023-04-20 06:00] VITALS: BP 125/78; PULSE 75; RESP 18; TEMP 37; O2SAT 98
[2023-04-20] MEDS: nicotine 2 mg Gum BUCCAL ×6 (07:50→19:48)
[2023-04-20] MEDS: naltrexone hcl 50 mg Tablet PO (08:44)
[2023-04-20] MEDS: thiamine 100 mg Tablet PO (08:44)
[2023-04-20] MEDS: fluoxetine 10 mg Capsule 30 MG PO (08:44)
[2023-04-20] MEDS: folic acid 1 mg Tablet PO (08:44)
[2023-04-20] MEDS: divalproex ER 500 mg Tablet (24H) 1500 MG PO (08:44)
[2023-04-20] MEDS: multivitamin therapeutic Tablet 1 TAB PO (08:44)
[2023-04-20 14:00] VITALS: BP 135/85; PULSE 69; RESP 16; TEMP 36.6; O2SAT 96
--- NOTE | 2023-04-20 16:50 | P.NPUPN_ITS ---
Subjective NPU Subjective: Patient is a 32-year-old white male admitted with suicidal ideation with a significant history of alcohol abuse, personality disorder NOS, and MDD. The patient reported some difficulties with sleep with addition of seroquel and received trazodone last night and was able to sleep. Patient reports continued depressed mood but reported that he was more hopeful. He reported no side effects from medication. He was able to attend groups, Mental Status Exam MSE Comments: Casually dressed white male who appeared his stated age. He had difficulties sitting still as he appeared to be pacing hallway. His gait appeared adequate. His hygiene was fair. There was no evidence of any abnormal involuntary motor movements tics or tremors appreciated. His mood was described as okay. His affect was restricted. His thought process was linear logical and goal- directed. His thought content showed no evidence of active homicidal or suicidal ideation. He did not appear to be responding internal stimuli. There was no clear evidence of delusional thinking. His recent and remote memory appeared grossly intact. His insight and judgment appeared limited. His impulse control appeared poor. Vitals/I&O/Wt Last Vital Signs Temp 97.9 F 04/20/23 14:00 Pulse 69 04/20/23 14:00 Resp 16 04/20/23 14:00 BP 135/85 04/20/23 14:00 Pulse Ox 96 04/20/23 14:00 O2 Del Method Room Air 04/20/23 06:00 A&P Assessment and plan (1) Major depressive disorder, recurrent: (2) Alcohol dependence: (3) PTSD (post-traumatic stress disorder): Plan This is a 32-year-old male with multiple previous psychiatric admissions over the last year admitted with suicidal ideation with active depression and alcohol dependence. 1. ?Encourage individual, group and milieu therapy. 2. Recommend sober living treatment at the highest level of care to which the patient is willing to commit. 3. Continue q-15 minute checks for safety.? 4. Increase prozac 40 mg daily and continue Seroquel at 200 mg at night continue depakote and naltrexone oral as prescribed. Continue naltrexone as prescribed. 5. Referral for inpatient drug and alcohol rehab completed. Patient d/c tommorow with direct admission to facility near patient's home. Involuntary Hold Information 96 Hour Hold: 96 Hour Involuntary Admission: Yes 96 Hour Hold Ending Date: 04/22/23 96 Hour Hold Ending Time: 00:01 Attestations NPU Medical Necessity Statement*: Inpatient hospitalization is medically necessary and the clinically appropriate intervention at this time. We will initiate medications and make changes as indicated. His likely length of stay is 1-2 days. Coding Level of Care Code Acute Code for Chg Fwd Diagnoses Major depressive disorder, recurrent F33.9 Alcohol dependence F10.20 PTSD (post-traumatic stress disorder) F43.10
[2023-04-20] MEDS: efferdent effervescent 1 EACH DENTAL (19:49)
[2023-04-20] MEDS: trazodone 100 mg Tablet PO (20:02)
[2023-04-20] MEDS: quetiapine 100 mg Tablet 200 MG PO (20:02)
[2023-04-20 22:00] VITALS: BP 127/77; PULSE 73; RESP 18; TEMP 36.7; O2SAT 96
[2023-04-21 06:00] VITALS: BP 121/81; PULSE 68; RESP 17; TEMP 36.6; O2SAT 99
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
[2023-04-21] MEDS: naltrexone hcl 50 mg Tablet PO (08:28)
[2023-04-21] MEDS: fluoxetine 20 mg Capsule 40 MG PO (08:28)
[2023-04-21] MEDS: nicotine 2 mg Gum BUCCAL (08:29)
[2023-04-21] MEDS: divalproex ER 500 mg Tablet (24H) 1500 MG PO (08:29)
[2023-04-21 08:48] VITALS: BP 121/81; PULSE 68; RESP 17; TEMP 36.6; O2SAT 99
--- NOTE | 2023-04-21 08:54 | PC.NURSE ---
PT DISCHARGED AT 0853 WITH ALL BELONGINGS AND DISCHARGE EDUCATION. PT LEFT WITH ALL PRESCRIBED MEDICATIONS WITH EDUCATION SHEETS PROVIDED ON EACH NEW MEDICATION. PT DISCHARGED WITH BY POV AND IS GOING TO ALCOHOL AND DRUG REHAB. PT AND VERBALIZED UNDERSTANDING. ALL QUESTIONS WERE ANSWERED AND SUPPORT WAS VOICED.
== END 2023-04-21 08:53 | disposition home or self-care (01) | DRG 885 ==
PROVIDERS: Admitting Provider Psychiatry & Neurology Psychiatry; Visit Provider Psychiatry & Neurology Psychiatry
DX: F33.9 Major depressive disorder, recurrent, unspecified (principal); R45.851 Suicidal ideations; Z91.148 Patient's other noncompliance with medication regimen for other reason; F10.20 Alcohol dependence, uncomplicated; F43.10 Post-traumatic stress disorder, unspecified; F60.9 Personality disorder, unspecified
CPT/HCPCS: 97150; 97165; Q0162; Q0169